=== PATIENT | female | born 1995 | race Caucasian/White ===

== ENCOUNTER 2018-04-22 05:50 | Inpatient (IN) | payer MEDICAID ==
[2018-04-22] MEDS ORDERED: OXYTOCIN 30 UNITS/LR 500 ML IV ×2 (06:30→22:00)
[2018-04-22] MEDS ORDERED: MINERAL OIL LIGHT 10 ML VIAL TOP (06:30)
[2018-04-22] MEDS ORDERED: CARBOPROST 250 MCG INJ IM (06:30)
[2018-04-22] MEDS ORDERED: LIDOCAINE 1% (MPF) 30 ML INJ INJ (06:30)
[2018-04-22] MEDS ORDERED: METHYLERGONOVINE 0.2 MG INJ IM (06:30)
[2018-04-22] MEDS ORDERED: MISOPROSTOL 200 MCG TAB PR (06:30)
[2018-04-22] MEDS: LACTATED RINGER'S 1,000 ML IV* ×3 (06:36→17:54)
[2018-04-22 06:54] LABS: ADD MAN DIFF? NO
[2018-04-22 07:03] LABS: BASOPHIL # 0.1 10^3/ul (0.0-0.1); BASOPHILS % 0.6 % (0.0-2.0); EOSINOPHILS # 0.3 10^3/ul (0.0-0.5); EOSINOPHILS % 3.6 % (0.0-7.0); HEMATOCRIT 37.7 % (37.0-47.0); LYMPHOCYTES % 23.4 % (15.0-51.0); MEAN CORPUSCULAR HGB CONC 34.5 g/dl (32.0-37.0); MEAN CORPUSCULAR VOLUME 87.1 fl (82.0-101.0); MEAN PLATELET VOLUME 11.1 fl (7.4-10.4); MONOCYTE # 0.7 10^3/ul (0.3-0.9); NEUTROPHIL # 5.1 10^3/ul (1.6-7.5); NEUTROPHILS % 60.5 % (39.0-77.0); PLATELET COUNT 160 10^3/UL (140-415); RED BLOOD COUNT 4.33 10^6/ul (4.20-5.40); RED CELL DISTRIBUTION WIDTH 14.1 % (11.5-14.5)
[2018-04-22 07:03] LABS: WHITE BLOOD COUNT 8.4 10^3/ul (4.8-10.8)
[2018-04-22 07:16] LABS: INR 0.89; PROTIME 12.1 Sec (11.9-14.9); PT RATIO 0.9
[2018-04-22] MEDS: DINOPROSTONE 10 MG VAG SUPP VAG (07:58)
[2018-04-22] MEDS: BUTORPHANOL 2 MG INJ IV (15:15)
[2018-04-22 19:55] LABS: RAPID PLASMA REAGIN NONREACTIVE (NR)
[2018-04-22] MEDS: MOMETASONE 0.24 GM INHALER INH (20:20)
[2018-04-22 22:58] LABS: HEPATITIS B SURFACE ANTIGEN NEGATIVE (NEGATIVE)
[2018-04-23] MEDS: LACTATED RINGER'S 1,000 ML IV* ×4 (02:50→18:24)
[2018-04-23] MEDS ORDERED: FENTAnyl 2MCG/ML-ROPIV 0.2% 100 ML (03:32)
[2018-04-23] MEDS: OXYTOCIN 30 UNITS/LR 500 ML IV ×4 (03:48→20:03)
[2018-04-23] MEDS ORDERED: DIPHENHYDRAMINE 50 MG INJ IV (04:30)
[2018-04-23] MEDS ORDERED: NALOXONE (0.4 MG/ML) INJ IV (04:30)
[2018-04-23] MEDS ORDERED: ONDANSETRON 4 MG INJ IV (04:30)
[2018-04-23] MEDS: MOMETASONE 0.24 GM INHALER INH (09:00)
[2018-04-23] MEDS: FENTAnyl 2MCG/ML-ROPIV 0.2% 100 ML BAG EPI (09:27)
[2018-04-23] MEDS: IBUPROFEN 600 MG TAB PO (17:05)
[2018-04-23] MEDS ORDERED: MAGNESIUM HYDROXIDE 30ML CUP PO (18:30)
[2018-04-23] MEDS ORDERED: LANOLIN 7 GM TUBE TOP (18:30)
[2018-04-23] MEDS ORDERED: HYDROCODONE/APAP (5/325) TAB PO (18:30)
[2018-04-23] MEDS ORDERED: SENNA/DOCUSATE NA (8.6MG/50MG) TAB PO (18:30)
[2018-04-23] MEDS ORDERED: ACETAMINOPHEN 325 MG TAB PO (18:30)
[2018-04-23] MEDS ORDERED: CARBOPROST 250 MCG INJ IM (18:30)
[2018-04-23] MEDS ORDERED: METHYLERGONOVINE 0.2 MG INJ IM (18:30)
[2018-04-23] MEDS: IBUPROFEN 800 MG TAB PO (18:30)
[2018-04-23] MEDS ORDERED: MISOPROSTOL 200 MCG TAB PR (18:30)
[2018-04-23] MEDS ORDERED: DIPHENHYDRAMINE 25 MG CAP PO (18:30)
[2018-04-23] MEDS ORDERED: ZOLPIDEM 5 MG TAB PO (18:30)
[2018-04-23] MEDS ORDERED: OXYTOCIN 30 UNITS/LR 500 ML IV (18:30)
[2018-04-23] MEDS: MINERAL OIL LIGHT 10 ML VIAL TOP (18:53)
[2018-04-23] MEDS: WITCH HAZEL/GLYCERIN PAD PR (20:20)
[2018-04-23] MEDS: BENZOCAINE 20% 56 ML SPRAY TOP (20:20)
[2018-04-24] MEDS: LACTATED RINGER'S 1,000 ML IV* (02:24)
[2018-04-24] MEDS: IBUPROFEN 800 MG TAB PO ×5 (05:17→23:58)
[2018-04-24 08:53] LABS: ADD MAN DIFF? NO
[2018-04-24 08:59] LABS: BASOPHILS % 0.2 % (0.0-2.0); EOSINOPHILS # 0.1 10^3/ul (0.0-0.5); EOSINOPHILS % 0.7 % (0.0-7.0); HEMATOCRIT 30.9 % (37.0-47.0); HEMOGLOBIN 10.7 g/dl (12.0-16.0); LYMPHOCYTES # 2.1 10^3/ul (0.8-2.9); LYMPHOCYTES % 14.6 % (15.0-51.0); MEAN CORPUSCULAR HEMOGLOBIN 31.1 pg (29.0-33.0); MEAN CORPUSCULAR HGB CONC 34.6 g/dl (32.0-37.0); MEAN CORPUSCULAR VOLUME 89.8 fl (82.0-101.0); MEAN PLATELET VOLUME 10.8 fl (7.4-10.4); MONOCYTES % 7.4 % (0.0-11.0); NEUTROPHIL # 10.6 10^3/ul (1.6-7.5); NEUTROPHILS % 75.5 % (39.0-77.0); PLATELET COUNT 147 10^3/UL (140-415); RED BLOOD COUNT 3.44 10^6/ul (4.20-5.40); RED CELL DISTRIBUTION WIDTH 14.2 % (11.5-14.5)
[2018-04-24 08:59] LABS: WHITE BLOOD COUNT 14.1 10^3/ul (4.8-10.8)
[2018-04-24] MEDS: MOMETASONE 0.24 GM INHALER INH (17:02)
[2018-04-25] MEDS: MOMETASONE 0.24 GM INHALER INH ×2 (00:55→08:42)
[2018-04-25] MEDS: IBUPROFEN 800 MG TAB PO ×2 (05:44→12:04)
[2018-04-25] MEDS: VARICELLA VACCINE LIVE/PF 1,350 UNIT/0.5 ML ML SC* (07:55)
[2018-04-25] MEDS: MEASLES,MUMPS,RUBELLA VACCINE INJ SC* (07:55)
[2018-04-25] MEDS: DIPHTH/TET/ACEL PERTUSS (ADULT) 0.5 ML VIAL IM* (08:43)
== END 2018-04-25 14:05 | disposition home or self-care (01) | DRG 775 ==
LOC: L-D 05:50 → PP1 04-23 17:56
PROVIDERS: Obstetrics & Gynecology
PROC: 3E033VJ Introduction of Other Hormone into Peripheral Vein, Percutaneous Approach (ICD-10-PCS; 2018-04-22 06:00)
DX: O48.0 Post-term pregnancy (principal); O70.9 Perineal laceration during delivery, unspecified; Z3A.41 41 weeks gestation of pregnancy; Z37.0 Single live birth
CPT/HCPCS: 62319; 85025; 85610; 85730; 86592; 86850; 86900; 86901; 87340; 88307; 90715; 99464